=== PATIENT | male | born 1995 | race American Indian/Alaskan Native ===

== ENCOUNTER 2017-03-17 18:56 | Emergency (ER) | payer SELFPAY ==
[2017-03-17 19:54] VITALS: BP 127/80; PULSE 90; RESP 20; TEMP 98.5; O2SAT 99
--- NOTE | 2017-03-17 21:26 | C.PDOC ---
History Of Present Illness 21 year old male presents to the ED for evaluation of lower back pain which began two days ago. Patient states he was lifting a heavy mattress when he felt a "pull" to his lower back. He has been managing his symptoms with over-the- counter medications, but presents to the ED for evaluation because his pain has persisted. He states the pain worsens with sitting upright and with movement. He denies urinary/bowel incontinence, extremity numbness/weakness, or any other injuries at this time. Time Seen by Provider: 03/17/17 19:56 Chief Complaint (Nursing): Back Pain History Per: Patient History/Exam Limitations: no limitations Onset/Duration Of Symptoms: Days Current Symptoms Are (Timing): Still Present Quality Of Discomfort: "Pain" Previous Symptoms: Back Pain (lower) Associated Symptoms: denies: Incontinence, New Weakness, New Numbness Exacerbating Factor(s): Movement, Sitting (upright) Additional History Per: Patient Past Medical History Reviewed: Historical Data, Nursing Documentation, Vital Signs Vital Signs: Last Vital Signs Temp 98.5 F 03/17/17 19:50 Pulse 90 03/17/17 19:50 Resp 20 03/17/17 19:50 BP 127/80 03/17/17 19:50 Pulse Ox 99 03/17/17 21:26 - Medical History PMH: No Chronic Diseases Surgical History: No Surg Hx Family History: States: Unknown Family Hx - Social History Hx Alcohol Use: Yes Hx Substance Use: No - Immunization History Hx Tetanus Toxoid Vaccination: No Hx Influenza Vaccination: No Hx Pneumococcal Vaccination: No Review Of Systems Genitourinary: Negative for: Incontinence Musculoskeletal: Positive for: Back Pain (lower) Neurological: Negative for: Weakness, Numbness Physical Exam - Physical Exam Appears: Non-toxic, No Acute Distress Skin: Normal Color, Warm, Dry Oral Mucosa: Moist Neck: Supple Back: No CVA Tenderness, No Vertebral Tenderness, Paraspinal Tenderness (mid- lower paralumbar region ), Straight Leg Raising (positive at 40 degrees ) Extremity: Normal ROM, Capillary Refill (less than 2 seconds ) Neurological/Psych: Oriented x3, Normal Speech, Normal Cognition, Normal Sensation Gait: Steady ED Course And Treatment O2 Sat by Pulse Oximetry: 99 (on RA) Pulse Ox Interpretation: Normal Progress Note: Toradol IM and Valium PO administered. On reassessment, patient is sleeping comfortably in the ED and is showing no signs of distress. Patient reports an improvement in his symptoms and is able to ambulate normally. He is stable for discharge and is advised to f/u with his PMD within 1-2 days for further evaluation. Reassessment Condition: Improved Disposition - Disposition Disposition: HOME/ ROUTINE Disposition Time: 21:22 Condition: STABLE Additional Instructions: Please follow up with PMD Take meds as directed Return to ER if worse Prescriptions: Cyclobenzaprine [Cyclobenzaprine HCl] 10 mg PO BID #10 tab Ibuprofen [Motrin] 600 mg PO Q6H #20 tab Instructions: Muscle Strain (ED) Forms: [facility] (Greenlandic), Work Excuse - Clinical Impression Clinical Impression: Low back strain - PA / SENIOR INTEGRATION ARCHITECT / Resident Statement MD/DO has reviewed & agrees with the documentation as recorded. - Scribe Statement The provider has reviewed the documentation as recorded by the Scribe (Jaqueline Patel) All medical record entries made by the Scribe were at my direction and personally dictated by me. I have reviewed the chart and agree that the record accurately reflects my personal performance of the history, physical exam, medical decision making, and the department course for this patient. I have also personally directed, reviewed, and agree with the discharge instructions and disposition.
== END 2017-03-17 21:32 | disposition home or self-care (01) ==
LOC: C.ER 18:56
DX: S39.012A Strain of muscle, fascia and tendon of lower back, initial encounter (principal); X50.0XXA Overexertion from strenuous movement or load, initial encounter
CPT/HCPCS: 96372; 99283; J1885

== ENCOUNTER 2017-08-08 01:55 | Emergency (ER) | payer MEDICAID ==
--- NOTE | 2017-08-08 05:19 | C.PDOC ---
History Of Present Illness 21 y/o male presents to the ED for evaluation of left ankle pain after he twisted the area while playing basketball earlier today. Patient denies head injury, LOC, extremity numbness/weakness. Time Seen by Provider: 08/08/17 03:23 Chief Complaint (Nursing): Lower Extremity Problem/Injury History Per: Patient History/Exam Limitations: no limitations Onset/Duration Of Symptoms: Hrs Current Symptoms Are (Timing): Still Present Pain Scale Rating Of: 5 Recent travel outside of the [place]: No - Ankle/Foot Description Of Injury: Twisted Alleviating Factor(s): Ice Therapy, Elevation Past Medical History Reviewed: Historical Data, Nursing Documentation, Vital Signs Vital Signs: Last Vital Signs Temp 97.6 F 08/08/17 05:34 Pulse 62 08/08/17 05:34 Resp 18 08/08/17 05:34 BP 119/75 08/08/17 05:34 Pulse Ox 99 08/08/17 06:48 - Medical History PMH: Asthma Surgical History: No Surg Hx Family History: States: Unknown Family Hx - Social History Hx Alcohol Use: Yes Hx Substance Use: No - Immunization History Hx Tetanus Toxoid Vaccination: No Hx Influenza Vaccination: No Hx Pneumococcal Vaccination: No Review Of Systems Musculoskeletal: Positive for: Other (left ankle pain ) Neurological: Negative for: Weakness, Numbness, Other (head injury, LOC ) Physical Exam - Physical Exam Appears: Non-toxic, No Acute Distress Skin: Normal Color, Warm, Dry, No Rash Head: Atraumatic, Normacephalic Eye(s): bilateral: Normal Inspection Oral Mucosa: Moist Extremity: Normal ROM, Tenderness (to left lateral malleolus ), Capillary Refill (less than 2 seconds ), Swelling (to left lateral malleolus ) Pulses: Left Dorsalis Pedis: Normal, Right Dorsalis Pedis: Normal Neurological/Psych: Oriented x3, Normal Speech, Normal Cognition, Normal Motor, Normal Sensation Gait: Steady ED Course And Treatment O2 Sat by Pulse Oximetry: 99 (on RA) Pulse Ox Interpretation: Normal Medical Decision Making Medical Decision Making: Progress: Motrin PO administered. Left foot and ankle XR ordered and reviewed. Air cast and crutches were applied by identification technician. Disposition - Disposition Referrals: Chad Jaramillo III, MD [Staff Provider] - Disposition: HOME/ ROUTINE Disposition Time: 05:16 Condition: GOOD Additional Instructions: Follow up with the medical doctor within 1-2 days. return if worsened. Prescriptions: Ibuprofen [Motrin] 600 mg PO TID #21 tab Instructions: Ankle Sprain Forms: [facility] (Dominican) - Clinical Impression Clinical Impression: Ankle sprain - PA / CORRESPONDENCE COORDINATOR / Resident Statement MD/DO has reviewed & agrees with the documentation as recorded. - Scribe Statement The provider has reviewed the documentation as recorded by the Scribe (Jaqueline Patel) All medical record entries made by the Scribe were at my direction and personally dictated by me. I have reviewed the chart and agree that the record accurately reflects my personal performance of the history, physical exam, medical decision making, and the department course for this patient. I have also personally directed, reviewed, and agree with the discharge instructions and disposition.
[2017-08-08 05:37] VITALS: BP 119/75; PULSE 62; RESP 18; TEMP 97.6
[2017-08-08 06:38] VITALS: O2SAT 99
--- NOTE | 2017-08-08 08:35 | RAD ---
PROCEDURE: Right Ankle Radiographs. HISTORY: ankle injury, pain and swelling COMPARISON: None FINDINGS: BONES: Normal. No fracture. JOINTS: Normal. No osteoarthritis. Ankle mortise maintained. Talar dome intact SOFT TISSUES: Mild soft tissue swelling noted. OTHER FINDINGS: None. IMPRESSION: No evidence of acute fracture or dislocation. Mild soft tissue swelling.
--- NOTE | 2017-08-08 08:44 | RAD ---
PROCEDURE: Right Foot Radiographs. HISTORY: foot injury, pain COMPARISON: None. FINDINGS: BONES: Normal. No fracture. JOINTS: Normal. SOFT TISSUES: Normal. OTHER FINDINGS: None. IMPRESSION: No evidence of acute fracture or dislocation.
== END 2017-08-08 05:39 | disposition home or self-care (01) ==
LOC: C.ER 01:55
DX: S93.402A Sprain of unspecified ligament of left ankle, initial encounter (principal); X50.9XXA Other and unspecified overexertion or strenuous movements or postures, initial encounter; Y93.67 Activity, basketball